=== PATIENT | female | born 1945 | race Caucasian/White ===

== ENCOUNTER 2020-01-19 04:29 | Emergency (ER) | payer MEDICARE, OTHER ==
[~2020-01-19] VITALS: Ht 157.5 cm; Wt 75.0 kg
--- OUTSIDE RECORDS SUMMARY | 2020-01-19 04:38 | XMS REPORT | Continuity of Care Document ---
Author Organization Unknown Address Unknown Phone Unavailable Allergies There is no data. Medications There is no data. Problems There is no data. Procedures There is no data. Results There is no data. Encounters ACCT No. Visit Date/Time Discharge Status Pt. Type Provider Facility Loc./Unit Complaint [id number] 02/01/2019 09:30:00 02/01/2019 23:59: [address] [facility]
[2020-01-19 04:45] VITALS: BP 178/91
[2020-01-19] MEDS ORDERED: TRM50T PO (04:55)
[2020-01-19] MEDS ORDERED: PRD20T PO (04:55)
[2020-01-19] MEDS ORDERED: predniSONE 20 MG TAB PO ONE (05:00)
--- NOTE | 2020-01-19 05:00 | ED Upper Extremity ---
General Chief Complaint: Upper Extremity Stated Complaint: RIGHT WRIST INJURY Nursing Triage Note: pt with no known injury, states right wrist started swelling last night causing pain and itching Nursing Sepsis Screen: No Definite Risk History of Present Illness Date Seen by Provider: Jan 19, 2020 Time Seen by Provider: 04:30 Initial Comments patient is a 74-year-old right Handed female who presents with right wrist pain and tenderness and swelling unknown injury. Tenderness swelling over wrist with Onset: last week Pain/Injury Location: right wrist, right hand Method of Injury: other Modifying Factors: Improves With Movement Allergies and Home Medications Allergies Coded Allergies: No Known Drug Allergies (Unverified , 01/19/20) Home Medications Prednisone 20 Mg Tab, 40 MG PO DAILY Prescribed by: BRETT WILLINGHAM on 01/19/20 0455 Tramadol HCl 50 Mg Tablet, 50 MG PO Q6H PRN for PAIN Prescribed by: BRETT WILLINGHAM on 01/19/20 0455 Patient Home Medication List Home Medication List Reviewed: Yes Review of Systems Constitutional: no symptoms reported EENTM: no symptoms reported Respiratory: no symptoms reported Cardiovascular: no symptoms reported Gastrointestinal: no symptoms reported Genitourinary: no symptoms reported Musculoskeletal: see HPI Skin: no symptoms reported Past Mgwexbz-Evseed-Oqteoc Hx Past Med/Social Hx: Reviewed Nursing Past Med/Soc Hx Patient Social History Alcohol Use: Denies Use Recreational Drug Use: No Smoking Status: Never a Smoker 2nd Hand Smoke Exposure: No Recent Foreign Travel: No Contact w/Someone Who Travel: No Recent Infectious Disease Expo: No Recent Hopitalizations: No Physical Abuse: No Sexual Abuse: No Mistreated: No Fear: No Seasonal Allergies Seasonal Allergies: No Past Medical History Surgeries: No Cardiac: Yes Heart Attack Neurological: No Genitourinary: No Gastrointestinal: No Musculoskeletal: Yes Arthritis Endocrine: Yes Diabetes, Non-Insulin dep HEENT: No Cancer: No Psychosocial: No Blood Disorders: No Physical Exam Vital Signs Vital Signs - First Documented 01/19/20 04:45 Temp 36.4 Pulse 77 Resp 18 B/P (MAP) 178/91 (120) Pulse Ox 96 O2 Delivery Room Air Capillary Refill : Less Than 3 Seconds Height, Weight, BMI Height: '" Weight: lbs. oz. kg; 30.00 BMI Method: General Appearance: WD/WN, no apparent distress HEENT: PERRL/EOMI Wrist: Yes soft tissue tenderness, Yes swelling (arthritic deformities of right wrist, no erythema, induration or cellulitis.) Hand: normal inspection, non-tender, Right Neurologic/Tendon: normal sensation Progress/Results/Core Measures Results/Orders My Orders Orders - BRETT WILLINGHAM DO Wrist 3 View Right (01/19/20 04:34) Prednisone Tablet (Deltasone Tablet) (01/19/20 05:00) Vital Signs/I&O 01/19/20 04:45 Temp 36.4 Pulse 77 Resp 18 B/P (MAP) 178/91 (120) Pulse Ox 96 O2 Delivery Room Air Blood Pressure Mean: 120 Departure Communication (Admissions) Right wrist Xray: Significant arthritis without obvious displaced fracture. Impression Primary Impression: Arthritis Additional Impression: Acute pain of right wrist Disposition: HOME, SELF-CARE Condition: Improved Departure-Patient Inst. Patient Instructions: Osteoarthritis, Hand Pain (DC) Add. Discharge Instructions: Take steroids and pain medications as directed. Wrap right wrist when swelling improves. Follow-up with PCP for further management. All discharge instructions reviewed with patient and/or family. Voiced understanding. Scripts Tramadol HCl (Tramadol HCl) 50 Mg Tablet 50 MG PO Q6H PRN for PAIN for 3 Days, #15 TAB 0 Refills Prov: BRETT WILLINGHAM DO 01/19/20 Prednisone (Prednisone) 20 Mg Tab 40 MG PO DAILY, #6 TAB 0 Refills Prov: BRETT WILLINGHAM DO 01/19/20 BRETT WILLINGHAM DO Jan 19, 2020 05:00
--- NOTE | 2020-01-19 07:25 | Diagnostic Imaging Report ---
INDICATION: Right wrist pain. Time of exam: 4:37 AM 3 views of the right wrist were obtained. Distal radius and ulna are intact. There are significant degenerative changes at the triscaphe and 1st CMC joints. Visualized metacarpals are intact. No fractures are seen. IMPRESSION: Degenerative changes. No acute bony abnormality is detected. Dictated by: Dictated on workstation # [id number]
== END 2020-01-19 05:01 | disposition home or self-care (01) ==
LOC: ER FS 04:33
DX: M19.031 Primary osteoarthritis, right wrist (principal); I25.2 Old myocardial infarction
CPT/HCPCS: 73110

== ENCOUNTER 2021-02-22 13:55 | Emergency (ER) | payer MEDICARE, OTHER ==
[~2021-02-22] VITALS: Ht 160 cm; Wt 76.0 kg
[~2021-02-22 13:55] MED LIST: PRD20T PO; TRM50T PO
--- NOTE | 2021-02-22 14:00 | ED Chest Pain ---
General Stated Complaint: CHEST/BACK PAIN History of Present Illness Date Seen by Provider: Feb 22, 2021 Time Seen by Provider: 13:57 Initial Comments 75-year-old female presents with epigastric/substernal pain that started in the middle the night that radiates through to her back. Patient has some mild right upper quadrant pain. She reports that she went to urgent care this morning who told her to get a hold of her physician or come to the ER. She called her physician and was told to present to the ER. Patient did have a negative Covid test this morning. She denies any diaphoresis, shortness of breath. She has had a couple episodes of vomiting. Allergies and Home Medications Allergies Coded Allergies: No Known Drug Allergies (Unverified , 01/19/20) Home Medications Prednisone 20 Mg Tab, 40 MG PO DAILY Prescribed by: BRETT WILLINGHAM on 01/19/20 0455 Tramadol HCl 50 Mg Tablet, 50 MG PO Q6H PRN for PAIN Prescribed by: BRETT WILLINGHAM on 01/19/20 0455 Patient Home Medication List Home Medication List Reviewed: Yes Review of Systems Review of Systems Constitutional: No chills, No fever Respiratory: No Symptoms Reported; Denies Cough, Denies Shortness of Air Cardiovascular: See HPI Gastrointestinal: Abdominal Pain, Nausea, Vomiting Genitourinary: No Symptoms Reported Musculoskeletal: no symptoms reported Skin: no symptoms reported Psychiatric/Neurological: No Symptoms Reported Endocrine: No Symptoms Reported Hematologic/Lymphatic: No Symptoms Reported Physical Exam Vital Signs Vital Signs - First Documented 02/22/21 14:19 Temp 36.6 Pulse 70 Resp 21 B/P (MAP) 198/80 (119) Pulse Ox 98 O2 Delivery Room Air Capillary Refill : Height, Weight, BMI Height: '" Weight: lbs. oz. kg; BMI Method: General Appearance: No Apparent Distress HEENT: TMs Normal, Pharynx Normal Neck: Non Tender, Supple Respiratory: Lungs Clear, Normal Breath Sounds Cardiovascular: Regular Rate, Rhythm, No Edema Gastrointestinal: Soft; No Distended, No Guarding; Tenderness (epigastric) Extremity: Normal Capillary Refill, Normal Inspection, Normal Range of Motion Neurologic/Psychiatric: Alert, Oriented x3, No Motor/Sensory Deficits, Normal Mood/Affect, school counselor II-XII Norm as Tested Skin: Normal Color, Warm/Dry Progress/Results/Core Measures Results/Orders Lab Results Laboratory Tests Test 02/22/21 14:03 Range/Units White Blood Count 16.6 H 4.3-11.0 10^3/uL Red Blood Count 4.69 4.35-5.85 10^6/uL Hemoglobin 15.0 11.5-16.0 G/DL Hematocrit 41 35-52 % Mean Corpuscular Volume 87 80-99 FL Mean Corpuscular Hemoglobin 32 25-34 PG Mean Corpuscular Hemoglobin Concent 37 H 32-36 G/DL Red Cell Distribution Width 12.5 10.0-14.5 % Platelet Count 296 130-400 10^3/uL Mean Platelet Volume 10.7 H 7.4-10.4 FL Immature Granulocyte % (Auto) 1 % Neutrophils (%) (Auto) 87 H 42-75 % Lymphocytes (%) (Auto) 7 L 12-44 % Monocytes (%) (Auto) 5 0-12 % Eosinophils (%) (Auto) 0 0-10 % Basophils (%) (Auto) 0 0-10 % Neutrophils # (Auto) 14.5 H 1.8-7.8 X 10^3 Lymphocytes # (Auto) 1.2 1.0-4.0 X 10^3 Monocytes # (Auto) 0.8 0.0-1.0 X 10^3 Eosinophils # (Auto) 0.0 0.0-0.3 10^3/uL Basophils # (Auto) 0.1 0.0-0.1 10^3/uL Immature Granulocyte # (Auto) 0.1 0.0-0.1 10^3/uL Neutrophils % (Manual) 86 % Lymphocytes % (Manual) 6 % Monocytes % (Manual) 5 % Eosinophils % (Manual) 0 % Basophils % (Manual) 0 % Band Neutrophils 3 % Prothrombin Time 12.8 12.2-14.7 SEC INR Comment 0.9 0.8-1.4 Activated Partial Thromboplast Time 25 24-35 SEC Sodium Level 132 L 135-145 MMOL/L Potassium Level 3.8 3.6-5.0 MMOL/L Chloride Level 94 L 98-107 MMOL/L Carbon Dioxide Level 23 21-32 MMOL/L Anion Gap 15 H 5-14 MMOL/L Blood Urea Nitrogen 12 7-18 MG/DL Creatinine 0.58 L 0.60-1.30 MG/DL Estimat Glomerular Filtration Rate > 60 BUN/Creatinine Ratio 21 Glucose Level 256 H 70-105 MG/DL Calcium Level 9.4 8.5-10.1 MG/DL Corrected Calcium 8.5-10.1 MG/DL Magnesium Level 1.5 L 1.6-2.4 MG/DL Total Bilirubin 0.4 0.1-1.0 MG/DL Aspartate Amino Transf (AST/SGOT) 16 5-34 U/L Alanine Aminotransferase (ALT/SGPT) 17 0-55 U/L Alkaline Phosphatase 86 40-136 U/L Troponin I < 0.30 <0.30 NG/ML Total Protein 7.9 6.4-8.2 GM/DL Albumin 4.7 H 3.2-4.5 GM/DL Lipase 28 8-78 U/L My Orders Orders - REYNOLDS,RICA L DO Cbc With Automated Diff (02/22/21 14:01) Magnesium (02/22/21 14:01) Chest 1 View Ap/Pa Only (02/22/21 14:01) Ekg Tracing (02/22/21 14:01) Comprehensive Metabolic Panel (02/22/21 14:01) Protime With Inr (02/22/21 14:01) Partial Thromboplastin Time (02/22/21 14:01) Monitor-Rhythm Ecg Trace Only (02/22/21 14:01) Aspirin Chewable Tablet (Baby Aspirin Ch (02/22/21 14:15) Ed Iv/Invasive Line Start (02/22/21 14:01) Lipase (02/22/21 14:01) Troponin I Fs (02/22/21 14:01) Famotidine Injection (Pepcid Injection) (02/22/21 14:01) Manual Differential (02/22/21 14:03) Abdomen Flat & Upright/Decub (02/22/21 14:48) Lidocaine 2% Viscous 15 Ml (Xylocaine Vi (02/22/21 15:00) Antacid Suspension (Mylanta Suspension (02/22/21 15:00) Medications Given in ED Current Medications Medications Dose Ordered Sig/Douglas Route Start Time Stop Time Status Last Admin Dose Admin Al Hydrox/Mg Hydrox/Simethicone 30 ml ONCE ONCE PO 02/22/21 15:00 02/22/21 15:01 DC 02/22/21 14:53 30 ML Aspirin 324 mg ONCE ONCE PO 02/22/21 14:15 02/22/21 14:16 DC 02/22/21 14:16 324 MG Lidocaine HCl 15 ml ONCE ONCE PO 02/22/21 15:00 02/22/21 15:01 DC 02/22/21 14:53 15 ML Vital Signs/I&O 02/22/21 02/22/21 14:19 15:49 Temp 36.6 36.2 Pulse 70 74 Resp 21 16 B/P (MAP) 198/80 (119) 167/74 Pulse Ox 98 99 O2 Delivery Room Air Room Air Progress Progress Note : Progress Note Patient symptoms started during the middle the night. Patient's EKG shows no acute findings, he has a negative troponin negative chest x-ray. Patient symptoms improved with Pepcid and GI cocktail. Patient likely with some gastritis versus some reflux. X-ray abdominal x-ray shows some moderate stool but she does not complain of any constipation. Discussed with her the need to start some GI medication such as Pepcid etc. [id number]. If her symptoms have not improved in a couple days to follow-up with her primary care provider. If symptoms get significant worse she should return to the ER. Patient stable and discharged home Initial ECG Impression Date: Feb 22, 2021 Initial ECG Impression Time: 13:58 Initial ECG Rate: 69 Initial ECG Rhythm: Normal Sinus Initial ECG Impression: Nonspecific Changes Comment no acute changes Diagnostic Imaging Diagonstic Imaging: Xray Plain Films/CT/US/NM/MRI: chest Comments Draft Date of Exam:02/22/21 CHEST 1 VIEW AP/PA ONLY INDICATION: Mid back and chest pain Single view of the chest shows normal heart size and vascularity. The lungs are clear. There is no effusion or pneumothorax. There is no bony abnormality. IMPRESSION: Normal chest. Reviewed: Reviewed by Me, Reviewed/Discussed Diagonstic Imaging: Xray Plain Films/CT/US/NM/MRI: abdomen Comments Date of Exam:02/22/21 ABDOMEN FLAT & UPRIGHT/DECUB EXAMINATION: Abdomen 2 view HISTORY: abdominal discomfort COMPARISON: None available. FINDINGS: There is a moderate amount of gas and stool throughout the colon. Nonobstructive bowel gas pattern. No radiopaque foreign body. The lung bases are clear. Surgical changes from left hip arthroplasty. Degenerative changes of the spine. IMPRESSION: Moderate stool burden without other acute abnormality in the abdomen. Reviewed: Reviewed by Me, Reviewed/Discussed Departure Impression Primary Impression: Gastritis Qualified Codes: K29.70 - Gastritis, unspecified, without bleeding Disposition: 01 HOME, SELF-CARE Condition: Stable Departure-Patient Inst. Patient Instructions: Acid Reflux and GERD in Adults (DC), Chest Pain That Is Not Caused by the Heart (DC), Gastritis (DC) Add. Discharge Instructions: Follow-up with your primary care provider in 3 to 4 days for recheck of today's symptom Start an [id number]-[id number] reflux medication such as Pepcid or other medication of your choice, use as directed on package Return to the ER if symptoms become worse or with any other concerns RICA REYNOLDS DO Feb 22, 2021 14:00
[2021-02-22] MEDS ORDERED: FAMOTIDINE 20MG/2ML IV (PEPCID) IV STA (14:01)
[2021-02-22] MEDS ORDERED: ASPIRIN 81 MG CHEW (CHILDREN'S ASA) PO ONE (14:15)
[2021-02-22 14:22] LABS: BASOPHILS % (AUTO) 0 % (0-10); EOSINOPHILS % (AUTO) 0 % (0-10); HEMATOCRIT 41 % (35-52); LYMPHOCYTES % (AUTO) 7 % (12-44); MEAN CORPUSCULAR HEMOGLOBIN 32 PG (25-34); MEAN CORPUSCULAR HGB CONC 37 G/DL (32-36); MEAN CORPUSCULAR VOLUME 87 FL (80-99); MEAN PLATELET VOLUME 10.7 FL (7.4-10.4); MONOCYTES % (AUTO) 5 % (0-12); NEUTROPHILS % (AUTO) 87 % (42-75); PLATELET COUNT 296 10^3/uL (130-400); WHITE BLOOD COUNT 16.6 10^3/uL (4.3-11.0)
[2021-02-22 14:23] LABS: BASOPHILS # (AUTO) 0.1 10^3/uL (0.0-0.1); LYMPHOCYTES # (AUTO) 1.2 X 10^3 (1.0-4.0); MONOCYTES # (AUTO) 0.8 X 10^3 (0.0-1.0); NEUTROPHILS # (AUTO) 14.5 X 10^3 (1.8-7.8)
[2021-02-22 14:26] LABS: INR 0.9 (0.8-1.4); PROTHROMBIN TIME PATIENT 12.8 SEC (12.2-14.7)
--- NOTE | 2021-02-22 14:26 | Diagnostic Imaging Report ---
INDICATION: Mid back and chest pain Single view of the chest shows normal heart size and vascularity. The lungs are clear. There is no effusion or pneumothorax. There is no bony abnormality. IMPRESSION: Normal chest. Dictated by: Dictated on workstation # [id number]
[2021-02-22 14:36] LABS: ALANINE AMINOTRANSFERASE 17 U/L (0-55); ALKALINE PHOSPHATASE 86 U/L (40-136); BILIRUBIN,TOTAL 0.4 MG/DL (0.1-1.0); BUN/CREATININE RATIO 21; CALCIUM 9.4 MG/DL (8.5-10.1); CARBON DIOXIDE 23 MMOL/L (21-32); CHLORIDE 94 MMOL/L (98-107); CREATININE SERUM 0.58 MG/DL (0.60-1.30); GFR ESTIMATED > 60; GLUCOSE 256 MG/DL (70-105); MAGNESIUM 1.5 MG/DL (1.6-2.4); POTASSIUM 3.8 MMOL/L (3.6-5.0); SODIUM 132 MMOL/L (135-145); TOTAL PROTEIN 7.9 GM/DL (6.4-8.2)
[2021-02-22 14:37] LABS: ALBUMIN 4.7 GM/DL (3.2-4.5); LIPASE 28 U/L (8-78)
[2021-02-22 14:51] LABS: BAND NEUTROPHILS 3 %; BASOPHILS % (MANUAL) 0 %; EOSINOPHILS % (MANUAL) 0 %; LYMPHOCYTES % (MANUAL) 6 %; MONOCYTES % (MANUAL) 5 %; NEUTROPHILS % (MANUAL) 86 %
[2021-02-22] MEDS ORDERED: ANTACID SUSP 30 ML UDC (MYLANTA) PO ONE (15:00)
[2021-02-22] MEDS ORDERED: LIDOCAINE 2% VISCOUS 15 ML UDC PO ONE (15:00)
--- NOTE | 2021-02-22 15:03 | Diagnostic Imaging Report ---
EXAMINATION: Abdomen 2 view HISTORY: abdominal discomfort COMPARISON: None available. FINDINGS: There is a moderate amount of gas and stool throughout the colon. Nonobstructive bowel gas pattern. No radiopaque foreign body. The lung bases are clear. Surgical changes from left hip arthroplasty. Degenerative changes of the spine. IMPRESSION: Moderate stool burden without other acute abnormality in the abdomen. Dictated by: Dictated on workstation # [id number]
[2021-02-22 15:49] VITALS: BP 167/74
== END 2021-02-22 15:52 | disposition home or self-care (01) ==
LOC: EDUNIT# 13:55 → ER FS 13:57
DX: K29.70 Gastritis, unspecified, without bleeding (principal)
CPT/HCPCS: 36415; 71045; 74019; 80053; 83690; 83735; 84484; 85007; 85027; 85610; 85730; 93005; 93041